=== PATIENT | male | born 1990 ===

== ENCOUNTER 2017-01-09 20:32 | Emergency (ER) | payer OTHER ==
[2017-01-09 21:13] VITALS: BP 144/90; PULSE 99; RESP 16; TEMP 98.4; O2SAT 97
--- NOTE | 2017-01-09 21:53 | UCPHY ---
H & P Time Seen by Provider: 01/09/17 21:24 Patient Type: New HPI/ROS: CHIEF COMPLAINT: Right shoulder pain. HISTORY OF PRESENT ILLNESS: The patient is a 26-year-old male who presents after falling onto his right shoulder while snowboarding earlier today. He felt immediate pain and heard a crack. He continued to snowboard for a period of time afterward, however, as he was with a friend. Nonetheless he was on all kinds of pain. The pain does not radiate, it is strictly limited to the lateral 3rd right clavicle. There is no involvement the scapula. He has no difficulty breathing or taking a deep breath or shortness of breath nor did he get the wind knocked out. He has no history of right shoulder injury. He has no other complaints at this time. Pain is mod to severe, no crepitus, no radiaton. [place]ell [place] 1330 [place]. Pain does not radiate. Best if held still. REVIEW OF SYSTEMS: Constitutional - feeling well before the fall Head - no injury or hematoma. had helmet helmet intact Neck: no pain or decreased ROM Thorax - did not injury to chest or ribs or spine, no shortness of breath Abdominal - denies any abdomen, or back injury. No nausea. Musculoskeletal - see above Past Medical/Surgical History: Denies. Social History: Nonsmoker. Smoking Status: Never smoked Physical Exam: General Appearance: Alert, no distress. Afebrile. Normal phonation. No respiratory distress. Neck: No adenopathy. Supple. No JVD. Trachea in midline. Respiratory: There are no retractions, lungs are clear to auscultation. Neurological: Ox3. No motor weakness. Sensation intact. Gait stilted as he is guarding the right shoulder. Skin: Warm and dry, no rashes. Musculoskeletal: STS to the lateral tip of the clavicle, skin is clear, no deformity. Point tender over same. Nontender to the scapula. Extremities: No edema. Homans sign negative. No cords. Psychiatric: Patient is oriented X 3, there is no agitation Constitutional: Initial Vital Signs Temperature (C) 36.9 C 01/09/17 21:06 Heart Rate 99 01/09/17 21:06 Respiratory Rate 16 01/09/17 21:06 Blood Pressure 144/90 H 01/09/17 21:06 O2 Sat (%) 97 03/04/17 21:06 O2 Delivery Mode Room Air Allergies/Adverse Reactions: No Known Allergies Allergy (Verified 01/09/17 21:05) Home Medications: Medication Instructions Recorded Adderall 10 mg Tablet 01/09/17 Hydrocodone/APAP 5/325 [[place] 1 - 2 tab PO Q6H PRN #20 tab 01/09/17 5/325 (*)] Medical Decision Making - Diagnostics Imaging: Study: Right clavicle X-ray Indication: Trauma, pain Results: I viewed the images myself on the PACS system. My interpretation of the images is: fracture. The radiologist interpretation is pending at the time of this dictation. ED Course/Re-evaluation: Right clavicle x-ray ordered. Differential Diagnosis: The differential diagnosis includes but is not limited to: Fracture, Sprain, Strain, Dislocation, Nerve injury Thorax: Rib fracture, hemothorax, pneumothorax, tension pneumothorax, aortic dissection, spine fracture. - Data Points Medications Given: Discontinued Medications Hydrocodone Bitart/Acetaminophen ([place] 5/325mg Prepack#6) [facility] Stop: 01/09/17 22:02 Last Admin: 01/09/17 22:19 Dose: 1 btl Departure - Departure Disposition: Home, Routine, Self-Care Clinical Impression: Clavicle fracture Qualifiers: Encounter type: initial encounter Clavicle location: lateral end Fracture type : closed Fracture alignment: nondisplaced Laterality: right Qualified Code(s): S42.034A - Nondisplaced fracture of lateral end of right clavicle, initial encounter for closed fracture Condition: Good Instructions: Hydrocodone/Acetaminophen (By mouth), Clavicle Fracture (ED) Additional Instructions: Call Dr. Goodwin, orthopedics, on Wednesday to set up an appointment. Wear your sling until you have followed up. Use the narcotics necessary at night for the pain, but do not use them beyond 1 [address] while using narcotics or wearing the sling Return for any serious worsening of condition. Referrals: Winnie Goodwin MD [Medical Doctor] - As per Instructions Stand Alone Forms: Work Limited Duty, Work Excuse Prescriptions: Hydrocodone/APAP 5/325 [[place] 5/325 (*)] 1 - 2 tab PO Q6H PRN #20 tab PRN Reason: moderate pain - PQRS PQRS Measurement: Not applicable. Report Scribed for: Cali Arvizu Report Scribed by: Brock Cesar Date of Report: 01/09/17 Time of Report: 21:51
[2017-01-09] MEDS ORDERED: HYDROCOD/APAP 5/325 PREPACK#6 BTL TAKEHOME ONE (22:01)
== END 2017-01-09 22:21 | disposition home or self-care (01) ==
LOC: CED 20:32
DX: S42.034A Nondisplaced fracture of lateral end of right clavicle, initial encounter for closed fracture (principal); S43.51XA Sprain of right acromioclavicular joint, initial encounter; Y93.23 Activity, snow (alpine) (downhill) skiing, snowboarding, sledding, tobogganing and snow tubing; V00.311A Fall from snowboard, initial encounter; Y92.828 Other wilderness area as the place of occurrence of the external cause; Y99.8 Other external cause status
CPT/HCPCS: 73030-PO; G0463-PO